=== PATIENT | female | born 1965 | race Caucasian/White ===

== ENCOUNTER → 2022-11-15 14:16 | Outpatient (CLI) | payer OTHER, SELFPAY ==
--- NOTE | ~2022-11-15 | CT_ITS ---
EXAMINATION: CT brain wo con DATE: 11/15/2022 14:34 INDICATION: Dizziness TECHNIQUE: Computed tomography (CT) of the head was performed without intravenous contrast. The mA wa s adjusted according to patient size. Iterative reconstruction technique was employed. Exam dose: 59 9.57 mGy-cm total exam DLP. COMPARISON: None FINDINGS: Mild intracranial cerebral atherosclerotic calcification. No intracranial mass lesion or hemorrhage or cerebrovascular accident, midline shift or mass effect i s detected. Normal ventricular size. No subdural or epidural hematoma. No fracture or bone destruction of the cranial vault. The mastoid air cells and included paranasal si nuses are normally developed and aerated. IMPRESSION: Mild cerebral atherosclerosis; no acute intracranial abnormality Reviewed, dictated and finalized at [facility]. Reviewed, dictated and finalized at [facility].
== END ==
PROVIDERS: PCP Family Medicine; Visit Provider Family Medicine
DX: R42 Dizziness and giddiness (principal); I67.2 Cerebral atherosclerosis
CPT/HCPCS: 70450

== ENCOUNTER 2024-05-27 14:52 | Outpatient (CLI) | payer OTHER, SELFPAY ==
--- NOTE | ~2024-05-27 | CT_ITS ---
CT abdomen pelvis wo con Ordering provider: Oscar GrissomMD History: 58 years Female with . Gross hamaturia . Comparison: None. Technique: CT abdomen and pelvis without IV and without oral contrast. Automated exposure control and iterative reconstruction technique were employed. The dose-length product was 1143.35 mGy-cm. Findings: VISUALIZED LOWER CHEST: Dependent atelectatic changes. Nodule in the right lung bases seen measuring 8 x 11 mm. 3 months follow-up advised. Subsegmental atelectasis in the left lung base. UPPER ABDOMINAL ORGANS: Liver: Normal. Gallbladder: Normal. Spleen: Mild splenomegaly. Stomach/duodenum: Normal. Pancreas: Normal. Adrenals: Normal. Kidneys: 1.2 cm in the left renal pelvis. No significant hydronephrotic changes. Stone in the right k idney midpole measuring 1.2 cm. Adjacent cortical calcifications are seen with tiny bulge of the tiss ue. Tiny calcifications in the right kidney lower pole. No hydronephrotic changes seen in the right k idney. PELVIC ORGANS: The bladder is underfilled. BOWEL AND MESENTERY: Colon: No evidence of diverticulitis. Fecal material is loaded in the colon suggestive of constipatio n. Normal appendix. Small Bowel: Normal. No obstruction. Peritoneum/mesentery: No free air or free fluid. No mesenteric lymphadenopathy. RETROPERITONEUM: Mild atheromatous disease of the abdominal aorta. No retroperitoneal lymphadenopat hy. MUSCULOSKELETAL: Superficial soft tissues: The superficial soft tissues are normal. Bones: Age appropriate degenerative changes of the spine. IMPRESSION: 1. Stone in the left renal pelvis with no hydronephrotic changes. 2. Right kidney stone with no hydronephrotic changes. Cortical calcification is also seen. Tiny ston es in the right kidney lower pole. Reviewed, dictated and finalized at [facility]. N RESOURCE INTERN IMPRESSION: 1. Stone in the left renal pelvis with no hydronephrotic changes. 2. Right kidney stone with no hydronephrotic changes. Cortical calcification i s also seen. Tiny stones in the right kidney lower pole.
== END 2024-05-27 14:53 | disposition home or self-care (01) ==
LOC: MICIMG 14:53
PROVIDERS: PCP Family Medicine; Visit Provider Family Medicine
DX: R31.0 Gross hematuria (principal); N20.0 Calculus of kidney
CPT/HCPCS: 74176

== ENCOUNTER 2024-07-13 11:54 | Outpatient (CLI) | payer OTHER, SELFPAY ==
--- NOTE | ~2024-07-13 | CT_ITS ---
EXAMINATION: CT wrist RT wo con DATE: 07/13/2024 12:12 INDICATION: Closed intra-articular fracture of the distal right radius TECHNIQUE: High resolution computed tomography (CT) of the right wrist was performed without intraven ous contrast. Additional sagittal and coronal reconstructions were performed. Automated exposure cont rol and iterative reconstruction technique were employed. The dose-length product was 118.60 mGy-cm. COMPARISON: None FINDINGS: Nondisplaced oblique sagittally oriented distal right fracture extending to the articular surface at the scaphoid fossa. Age-indeterminate widening of the scapholunate interval consistent with tear of t he scapholunate ligament. Increased scapholunate and lunocapitate angles consistent with matter dorsa l intercalated segment instability (DISI). Moderate osteoarthritis of the first carpometacarpal joint . Mild osteoarthritis at the radioscaphoid, triscaphe, second carpometacarpal and first metacarpophal angeal joints, the former suggesting the scapholunate ligament tear could be more chronic with second john scapholunate advanced collapse (SLAC) wrist. Soft tissues are unremarkable. IMPRESSION: 1. Nondisplaced acute intra-articular fracture of the distal right radius. 2. 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 Reviewed, dictated and finalized at [facility]. IMPRESSION: 1. Nondisplaced acute intra-articular fracture of the distal right radius. 2. Age-indeterminate widening of the scapholunate interval consistent with scap holunate ligament insufficiency with secondary dorsal intercalated segment inst ability (DISI). There is portion mild osteoarthritis of the radioscaphoid artic ulation which suggests this may be chronic with secondary early scapholunate ad vanced collapse (SLAC) wrist.
== END 2024-07-13 11:55 | disposition home or self-care (01) ==
LOC: MICIMG 11:55
PROVIDERS: PCP Family Medicine; Visit Provider Family Medicine Sports Medicine
DX: S52.571A Other intraarticular fracture of lower end of right radius, initial encounter for closed fracture (principal); S63.511A Sprain of carpal joint of right wrist, initial encounter; X58.XXXA Exposure to other specified factors, initial encounter
CPT/HCPCS: 73200